=== PATIENT | male | born 1940 | race Caucasian/White ===

== ENCOUNTER 2024-02-28 10:40 | Emergency (ER) | payer MEDICARE ==
[~2024-02-28] VITALS: Ht 170.2 cm; Wt 89.1 kg
[2024-02-28] MEDS ORDERED: DOCU100C16 PO (11:24)
[2024-02-28] MEDS ORDERED: FINA5TAB2 PO (11:24)
[2024-02-28] MEDS ORDERED: ELIQ5TAB PO (11:24)
[2024-02-28] MEDS ORDERED: NOXI1TAB PO (11:24)
[2024-02-28] MEDS ORDERED: MULT-90 PO (11:24)
[2024-02-28] MEDS ORDERED: TRAZ-257 PO (11:24)
[2024-02-28] MEDS ORDERED: METO1TAB7 PO (11:24)
[2024-02-28] MEDS ORDERED: PRAV40TA2 PO (11:24)
[2024-02-28] MEDS ORDERED: HYDR25TA87 PO (11:24)
[2024-02-28] MEDS ORDERED: TREL1AER PO (11:24)
[2024-02-28] MEDS ORDERED: FLOM0.4C39 PO (11:24)
[2024-02-28] MEDS ORDERED: PANT40TA29 PO (11:24)
[2024-02-28] MEDS ORDERED: VENTAER INH (11:24)
[2024-02-28] MEDS ORDERED: PRED5TA PO (11:24)
[2024-02-28] MEDS ORDERED: SERT50TA29 PO (11:24)
[2024-02-28] MEDS ORDERED: VITA500C24 PO (11:24)
[2024-02-28] MEDS ORDERED: IPRA0.00 NEB (11:24)
[2024-02-28] MEDS: ACETAMINOPHEN TAB 650MG DOSE (2X325MG) PO ONE (12:55)
[2024-02-28 13:18] LABS: BASO % 0.4 % (0.0-1.0); EOS # 0.1 10^3/uL (0.0-0.5); EOS % 1.1 % (0.0-3.0); HEMATOCRIT 34.5 % (42.0-52.0); HEMOGLOBIN 11.5 g/dl (13.5-17.5); LYMPH # 0.6 10^3/uL (1.5-5.0); LYMPH % 7.3 % (24.0-44.0); MEAN CORPUSCULAR HEMOGLOBIN 32.9 pg (27.0-33.0); MEAN CORPUSCULAR HGB CONC 33.3 g/dl (32.0-36.5); MEAN CORPUSCULAR VOLUME 98.6 fl (80.0-96.0); MONO # 0.4 10^3/uL (0.0-0.8); MONO % 4.9 % (2.0-8.0); NEUTROPHILS # 7.3 10^3/uL (1.5-8.5); NEUTROPHILS % 85.8 % (36.0-66.0); PLATELET COUNT, AUTOMATED 135 10^3/uL (150-450); WHITE BLOOD COUNT 8.5 10^3/uL (4.0-10.0)
[2024-02-28 13:28] LABS: ERYTHROCYTE SEDIMENTATION RATE 42 mm/hr (0-20)
[2024-02-28 14:59] VITALS: BP 100/54; TEMP 99.3; O2SAT 95
[2024-02-28] MEDS ORDERED: TRAM50TA2 PO (14:59)
[2024-02-28] MEDS ORDERED: PRED20TA PO (14:59)
[2024-02-28] MEDS: traMADol 50 MG TAB PO ONE (15:12)
[2024-03-02 19:52] LABS: LYME TOTAL ANTIBODY CIA <= 0.90 Index (<=0.90)
== END 2024-02-28 15:27 | disposition home or self-care (01) ==
LOC: M ED 10:40
DX: M25.462 Effusion, left knee (principal); M17.11 Unilateral primary osteoarthritis, right knee; I10 Essential (primary) hypertension; J44.9 Chronic obstructive pulmonary disease, unspecified; N40.0 Benign prostatic hyperplasia without lower urinary tract symptoms; Z87.891 Personal history of nicotine dependence; Z88.0 Allergy status to penicillin; Z88.2 Allergy status to sulfonamides; Z88.1 Allergy status to other antibiotic agents; Z79.01 Long term (current) use of anticoagulants; Z79.52 Long term (current) use of systemic steroids; Z79.899 Other long term (current) drug therapy

== ENCOUNTER 2024-05-24 11:31 | Inpatient (IN) | payer MEDICARE ==
[~2024-05-24] VITALS: Ht 170.2 cm; Wt 85.0 kg
[~2024-05-24 11:31] MED LIST: DOCU100C16 PO; ELIQ5TAB PO; FINA5TAB2 PO; FLOM0.4C39 PO; HYDR25TA87 PO; IPRA0.00 NEB; METO1TAB7 PO; MULT-90 PO; NOXI1TAB PO; PANT40TA29 PO; PRAV40TA2 PO; PRED20TA PO; PRED5TA PO; SERT50TA29 PO; TRAM50TA2 PO; TRAZ-257 PO; TREL1AER PO; VENTAER INH; VITA500C24 PO
[2024-05-24 12:16] LABS: VENOUS BASE EXCESS -1.2 (-2.0-2.0); VENOUS HCO3 23.5 MMOL/L (23.0-27.0); VENOUS O2 SATURATION 96.3 % (60.0-80.0); VENOUS PARTIAL PRESSURE CO2 39.2 mmHg (38.0-50.0); VENOUS PARTIAL PRESSURE O2 90.5 mmHg (30.0-50.0); VENOUS PH 7.395 UNITS (7.330-7.430); VENOUS STANDARD HCO3 23.4 MMOL/L; VENOUS TOTAL CO2 24.7 MMOL/L (24.0-28.0)
[2024-05-24 12:27] LABS: BASO % 0.4 % (0.0-1.0); EOS # 0.3 10^3/uL (0.0-0.5); EOS % 2.9 % (0.0-3.0); HEMATOCRIT 37.7 % (42.0-52.0); HEMOGLOBIN 12.4 g/dl (13.5-17.5); LYMPH # 1.5 10^3/uL (1.5-5.0); LYMPH % 15.6 % (24.0-44.0); MEAN CORPUSCULAR HEMOGLOBIN 33.5 pg (27.0-33.0); MEAN CORPUSCULAR HGB CONC 32.9 g/dl (32.0-36.5); MEAN CORPUSCULAR VOLUME 101.9 fl (80.0-96.0); MONO # 0.7 10^3/uL (0.0-0.8); MONO % 6.9 % (2.0-8.0); NEUTROPHILS # 7.1 10^3/uL (1.5-8.5); NEUTROPHILS % 73.9 % (36.0-66.0); PLATELET COUNT, AUTOMATED 167 10^3/uL (150-450); WHITE BLOOD COUNT 9.6 10^3/uL (4.0-10.0)
[2024-05-24 12:40] LABS: INR 1.37; PROTHROMBIN TIME 16.4 SECONDS (12.5-14.5)
[2024-05-24 12:50] LABS: LIPASE 20 U/L (12-53)
[2024-05-24 12:52] LABS: ALBUMIN 3.3 G/DL (3.2-5.2); ALKALINE PHOSPHATASE 157 U/L (46-116); ALT/SGPT 23 U/L (7.0-40); AST/SGOT 18 U/L (<34); BILIRUBIN,DIRECT 0.2 MG/DL (<0.4); BILIRUBIN,TOTAL 0.6 MG/DL (0.3-1.2); BLOOD UREA NITROGEN 29 MG/DL (9-23); CALCIUM LEVEL 9.1 MG/DL (8.3-10.6); CARBON DIOXIDE LEVEL 27 MMOL/L (20-31); CHLORIDE LEVEL 109 MMOL/L (98-107); CPK CREATINE PHOSPHOKINASE 57 U/L (46-171); CREATININE FOR GFR 1.76 MG/DL (0.70-1.30); GLOMERULAR FILTRATION RATE 39.5 (>35); GLUCOSE, FASTING 87 MG/DL (74-106); POTASSIUM SERUM 4.2 MMOL/L (3.5-5.1); SODIUM LEVEL 140 MMOL/L (136-145); TOTAL PROTEIN 6.5 G/DL (5.7-8.2)
[2024-05-24 12:53] LABS: CK-MB VALUE MASS < 1.0 NG/ML (<3.6); MB/CK RELATIVE INDEX 1.75 (< OR =4)
[2024-05-24 12:56] LABS: THYROID STIMULATING HORMONE 3.742 uIU/ML (0.55-4.78)
[2024-05-24] MEDS: ASPIRIN 81MG CHEW TABLET PO ONE (13:21)
[2024-05-24 13:54] LABS: CK-MB VALUE MASS < 1.0 NG/ML (<3.6)
[2024-05-24 13:55] LABS: CPK CREATINE PHOSPHOKINASE 37 U/L (46-171)
[2024-05-24] MEDS ORDERED: ISOVUE-370 76% 100ML VIAL As Ordered ONE (14:17)
[2024-05-24] MEDS ORDERED: **NOTE PATIENT COMMENT** MISC XX SCH (17:15)
[2024-05-24] MEDS ORDERED: ATOR40TA75 PO (18:08)
[2024-05-24] MEDS ORDERED: THEO400T4 PO (18:08)
[2024-05-24] MEDS ORDERED: HOME MED LIST COMPLETE! XX SCH (18:10)
[2024-05-24 18:24] VITALS: BP 146/73; TEMP 96.8; O2SAT 95
[2024-05-24] MEDS ORDERED: ACETAMINOPHEN 500 MG TAB PO PRN (18:30)
[2024-05-24 18:56] LABS: D-DIMER QUANT 0.49 ug/mL (<0.5); INR 1.37; PARTIAL THROMBOPLASTIN TIME 30.1 SECONDS (24.8-34.2); PROTHROMBIN TIME 16.4 SECONDS (12.5-14.5)
[2024-05-24 19:03] LABS: C REACTIVE PROTEIN QUANTITATIV < 0.40 MG/DL (<1.0); LDH LACTATE DEHYDROGENASE 221 U/L (120-246); MAGNESIUM LEVEL 1.6 MG/DL (1.8-2.4)
[2024-05-24 19:07] LABS: FERRITIN 25.3 NG/ML (10.5-307.3)
[2024-05-24] MEDS: LIDOCAINE 5% (LIDODERM) PATCH TD SCH (19:09)
[2024-05-24 19:11] LABS: PROCALCITONIN 0.09 ng/ml
[2024-05-24 20:00] VITALS: BP 146/73; TEMP 96.8; O2SAT 95
[2024-05-24] MEDS: COMBIVENT RESPIMAT 100-20MCG INHALER 4GM INH SCH (20:04)
[2024-05-24] MEDS: **hydrALAZINE HCL** 25 MG TAB PO SCH (20:19)
[2024-05-24] MEDS: ATORVASTATIN 20 MG TAB PO SCH (20:19)
[2024-05-24 20:20] VITALS: BP 146/67; TEMP 97.9; O2SAT 94
[2024-05-24] MEDS: TAMSULOSIN 0.4 MG CAP PO SCH (20:20)
[2024-05-24] MEDS: traZODone 100 MG TAB PO SCH (20:20)
[2024-05-24] MEDS: REMDESIVIR 200 MG in NS 250 ML IV ONE (20:21)
[2024-05-24] MEDS: METOPROLOL SUCC (TopROL XL) 50MG **XL** TAB PO SCH (20:21)
[2024-05-24] MEDS: APIXABAN 5 MG TAB (ELIQUIS) PO SCH (21:00)
[2024-05-25] VITALS: BP 128/64; TEMP 97.7; O2SAT 93
[2024-05-25] MEDS: ACETAMINOPHEN 500 MG TAB PO PRN (00:28)
[2024-05-25 02:20] LABS: CK-MB VALUE MASS < 1.0 NG/ML (<3.6)
[2024-05-25 02:21] LABS: CPK CREATINE PHOSPHOKINASE 47 U/L (46-171); MB/CK RELATIVE INDEX 2.12 (< OR =4)
[2024-05-25 04:46] VITALS: BP 98/44; TEMP 98.1; O2SAT 92
[2024-05-25 07:52] LABS: BASO % 0.6 % (0.0-1.0); EOS # 0.3 10^3/uL (0.0-0.5); EOS % 4.2 % (0.0-3.0); HEMATOCRIT 34.2 % (42.0-52.0); HEMOGLOBIN 11.6 g/dl (13.5-17.5); LYMPH # 0.6 10^3/uL (1.5-5.0); MEAN CORPUSCULAR HEMOGLOBIN 34.4 pg (27.0-33.0); MEAN CORPUSCULAR HGB CONC 33.9 g/dl (32.0-36.5); MEAN CORPUSCULAR VOLUME 101.5 fl (80.0-96.0); MONO # 0.4 10^3/uL (0.0-0.8); MONO % 7.1 % (2.0-8.0); NEUTROPHILS # 4.8 10^3/uL (1.5-8.5); NEUTROPHILS % 77.6 % (36.0-66.0); PLATELET COUNT, AUTOMATED 130 10^3/uL (150-450); RED BLOOD COUNT 3.37 10^6/uL (4.30-6.10); WHITE BLOOD COUNT 6.2 10^3/uL (4.0-10.0)
[2024-05-25 08:00] VITALS: BP 127/67; TEMP 97.9; O2SAT 95
[2024-05-25] MEDS: PANTOPRAZOLE 40MG TAB (PROTONIX) PO SCH (08:08)
[2024-05-25] MEDS: SERTRALINE HCL 50 MG TAB PO SCH (08:08)
[2024-05-25] MEDS: FINASTERIDE 5MG TAB PO SCH (08:09)
[2024-05-25 08:24] LABS: ALKALINE PHOSPHATASE 139 U/L (46-116); ALT/SGPT 20 U/L (7.0-40); AST/SGOT 17 U/L (<34); BILIRUBIN,DIRECT 0.2 MG/DL (<0.4); BILIRUBIN,TOTAL 0.5 MG/DL (0.3-1.2); BLOOD UREA NITROGEN 28 MG/DL (9-23); CALCIUM LEVEL 9.1 MG/DL (8.3-10.6); CARBON DIOXIDE LEVEL 24 MMOL/L (20-31); CHLORIDE LEVEL 110 MMOL/L (98-107); CREATININE FOR GFR 1.57 MG/DL (0.70-1.30); GLUCOSE, FASTING 113 MG/DL (74-106); MAGNESIUM LEVEL 1.6 MG/DL (1.8-2.4); POTASSIUM SERUM 4.1 MMOL/L (3.5-5.1); SODIUM LEVEL 140 MMOL/L (136-145); TOTAL PROTEIN 5.8 G/DL (5.7-8.2)
[2024-05-25] MEDS: MAG SULF 1GM/100ML (MAG RUN) 1 GM in IV 1 EA IV ONE (09:33)
[2024-05-25 10:02] LABS: CK-MB VALUE MASS < 1.0 NG/ML (<3.6)
[2024-05-25 10:03] LABS: CPK CREATINE PHOSPHOKINASE 53 U/L (46-171); MB/CK RELATIVE INDEX 1.88 (< OR =4)
[2024-05-25 12:00] VITALS: BP 129/66; TEMP 97.9; O2SAT 93
[2024-05-25 16:00] VITALS: BP 131/65; TEMP 97.9; O2SAT 94
[2024-05-25 17:22] LABS: CK-MB VALUE MASS < 1.0 NG/ML (<3.6)
[2024-05-25 17:23] LABS: CPK CREATINE PHOSPHOKINASE 52 U/L (46-171); MB/CK RELATIVE INDEX 1.92 (< OR =4)
[2024-05-25 20:00] VITALS: BP 129/62; TEMP 98.1; O2SAT 92
[2024-05-25] MEDS: REMDESIVIR 100 MG in NS 250 ML IV SCH (21:31)
[2024-05-26] VITALS: BP 131/64; TEMP 97.9; O2SAT 93
[2024-05-26 04:00] VITALS: BP 133/66; TEMP 97.9; O2SAT 96
[2024-05-26 06:01] LABS: BASO % 0.6 % (0.0-1.0); HEMATOCRIT 33.3 % (42.0-52.0); HEMOGLOBIN 11.3 g/dl (13.5-17.5); LYMPH # 0.8 10^3/uL (1.5-5.0); LYMPH % 14.2 % (24.0-44.0); MEAN CORPUSCULAR HEMOGLOBIN 34.2 pg (27.0-33.0); MEAN CORPUSCULAR HGB CONC 33.9 g/dl (32.0-36.5); MEAN CORPUSCULAR VOLUME 100.9 fl (80.0-96.0); MONO # 0.5 10^3/uL (0.0-0.8); MONO % 9.9 % (2.0-8.0); NEUTROPHILS % 74.7 % (36.0-66.0); PLATELET COUNT, AUTOMATED 145 10^3/uL (150-450); WHITE BLOOD COUNT 5.4 10^3/uL (4.0-10.0)
[2024-05-26 06:22] LABS: CALCIUM LEVEL 9.2 MG/DL (8.3-10.6); CREATININE FOR GFR 1.5 MG/DL (0.70-1.30); GLOMERULAR FILTRATION RATE 47.5 (>35); POTASSIUM SERUM 4.3 MMOL/L (3.5-5.1)
[2024-05-26 08:00] VITALS: BP 126/57; TEMP 97.2; O2SAT 94
[2024-05-26 12:00] VITALS: BP 124/54; TEMP 97.5; O2SAT 94
[2024-05-26 16:00] VITALS: BP 156/38; TEMP 97.3; O2SAT 96
[2024-05-26 20:00] VITALS: BP 134/51; TEMP 97.7; O2SAT 96
[2024-05-27] VITALS: BP 168/86; TEMP 97.9; O2SAT 97
[2024-05-27 04:00] VITALS: BP 121/78; TEMP 97.9; O2SAT 95
[2024-05-27 06:47] LABS: BASO % 0.2 % (0.0-1.0); EOS % 0.2 % (0.0-3.0); HEMATOCRIT 32.4 % (42.0-52.0); HEMOGLOBIN 11.1 g/dl (13.5-17.5); MEAN CORPUSCULAR HEMOGLOBIN 34.7 pg (27.0-33.0); MEAN CORPUSCULAR HGB CONC 34.3 g/dl (32.0-36.5); MEAN CORPUSCULAR VOLUME 101.3 fl (80.0-96.0); MONO # 0.5 10^3/uL (0.0-0.8); MONO % 9.3 % (2.0-8.0); NEUTROPHILS # 4.2 10^3/uL (1.5-8.5); NEUTROPHILS % 71.8 % (36.0-66.0); PLATELET COUNT, AUTOMATED 127 10^3/uL (150-450); WHITE BLOOD COUNT 5.8 10^3/uL (4.0-10.0)
[2024-05-27 07:03] LABS: CALCIUM LEVEL 8.8 MG/DL (8.3-10.6); CREATININE FOR GFR 1.37 MG/DL (0.70-1.30); GLOMERULAR FILTRATION RATE 52.7 (>35); MAGNESIUM LEVEL 1.7 MG/DL (1.8-2.4); POTASSIUM SERUM 4.4 MMOL/L (3.5-5.1)
[2024-05-27 08:00] VITALS: BP 128/49; TEMP 97.9; O2SAT 95
[2024-05-27 08:56] VITALS: BP 124/54
[2024-05-27] MEDS: MAG SULF 1GM/100ML (MAG RUN) 1 GM in IV 1 EA IV ONE (08:57)
[2024-05-27] MEDS ORDERED: DEXA2TA PO (09:14)
== END 2024-05-27 13:22 | disposition home health service (06) | DRG 178 ==
LOC: M ED 11:31 → M ED INP 17:12 → M MSPAV 18:25
PROVIDERS: ADMIT Family Medicine; ATTEND General Practice
DX: U07.1 COVID-19 (principal); J96.11 Chronic respiratory failure with hypoxia; I11.9 Hypertensive heart disease without heart failure; I25.10 Atherosclerotic heart disease of native coronary artery without angina pectoris; R07.81 Pleurodynia; E78.5 Hyperlipidemia, unspecified; K21.9 Gastro-esophageal reflux disease without esophagitis; Z95.1 Presence of aortocoronary bypass graft; J44.9 Chronic obstructive pulmonary disease, unspecified; N40.1 Benign prostatic hyperplasia with lower urinary tract symptoms; Z99.81 Dependence on supplemental oxygen; Z79.52 Long term (current) use of systemic steroids; Z79.899 Other long term (current) drug therapy; Z88.0 Allergy status to penicillin; Z88.2 Allergy status to sulfonamides; Z88.8 Allergy status to other drugs, medicaments and biological substances

== ENCOUNTER 2024-07-20 10:26 | Emergency (ER) | payer MEDICARE ==
[~2024-07-20] VITALS: Ht 170.2 cm; Wt 85.7 kg
[~2024-07-20 10:26] MED LIST changes: +ATOR40TA75 PO; +DEXA2TA PO; +THEO400T4 PO
[2024-07-20] MEDS: IPRATROPIUM 0.5MG/ALBUTEROL 2.5MG INH SOL UD 3ML (DUONEB) NEB SCH (12:16)
[2024-07-20] MEDS: dexAMETHasone 20MG/5ML VIAL IV ONE (12:28)
[2024-07-20 12:35] LABS: BASO % 0.5 % (0.0-1.0); EOS # 0.1 10^3/uL (0.0-0.5); HEMATOCRIT 38.3 % (42.0-52.0); HEMOGLOBIN 12.8 g/dl (13.5-17.5); LYMPH # 1.1 10^3/uL (1.5-5.0); LYMPH % 12.7 % (24.0-44.0); MEAN CORPUSCULAR HEMOGLOBIN 34.9 pg (27.0-33.0); MEAN CORPUSCULAR HGB CONC 33.4 g/dl (32.0-36.5); MEAN CORPUSCULAR VOLUME 104.4 fl (80.0-96.0); MONO # 0.7 10^3/uL (0.0-0.8); MONO % 7.5 % (2.0-8.0); NEUTROPHILS # 6.9 10^3/uL (1.5-8.5); NEUTROPHILS % 77.7 % (36.0-66.0); PLATELET COUNT, AUTOMATED 134 10^3/uL (150-450); RED BLOOD COUNT 3.67 10^6/uL (4.30-6.10); WHITE BLOOD COUNT 8.8 10^3/uL (4.0-10.0)
[2024-07-20 12:54] LABS: CALCIUM LEVEL 9.2 MG/DL (8.3-10.6); CREATININE FOR GFR 1.54 MG/DL (0.70-1.30); POTASSIUM SERUM 4.1 MMOL/L (3.5-5.1)
[2024-07-20] MEDS: AZITHROMYCIN INJ 500 MG, VIAL MATE ADAPTER 1 EACH in NS 250 ML IV ONE (13:38)
[2024-07-20] MEDS ORDERED: AZIT-10 PO (14:04)
[2024-07-20 14:30] VITALS: BP 133/63; TEMP 96.8; O2SAT 97
== END 2024-07-20 14:50 | disposition home or self-care (01) ==
LOC: M ED 10:26
DX: J44.1 Chronic obstructive pulmonary disease with (acute) exacerbation (principal); A37.10 Whooping cough due to Bordetella parapertussis without pneumonia; F32.A Depression, unspecified; N40.0 Benign prostatic hyperplasia without lower urinary tract symptoms; E78.5 Hyperlipidemia, unspecified; I10 Essential (primary) hypertension; F10.10 Alcohol abuse, uncomplicated; Z88.0 Allergy status to penicillin; Z88.1 Allergy status to other antibiotic agents; Z88.2 Allergy status to sulfonamides; Z79.52 Long term (current) use of systemic steroids; Z79.01 Long term (current) use of anticoagulants; Z79.02 Long term (current) use of antithrombotics/antiplatelets; Z79.899 Other long term (current) drug therapy; Z86.79 Personal history of other diseases of the circulatory system; Z87.891 Personal history of nicotine dependence
CPT/HCPCS: 71045; 80048; 83605; 85025; 87486; 87581; 87633; 87798; 93041; 94640; 94760; 96365; 96375; 99284; J0456; J1100

== ENCOUNTER 2024-08-18 10:47 | Observation (INO) | payer MEDICARE ==
[~2024-08-18] VITALS: Ht 170.2 cm; Wt 86.4 kg
[2024-08-18] MEDS: ASCORBIC ACID 500 MG TAB PO SCH (09:00)
[~2024-08-18 10:47] MED LIST changes: +AZIT-10 PO
[2024-08-18 16:09] LABS: HEMATOCRIT 38.3 % (42.0-52.0); HEMOGLOBIN 12.9 g/dl (13.5-17.5); MEAN CORPUSCULAR HEMOGLOBIN 34.9 pg (27.0-33.0); MEAN CORPUSCULAR HGB CONC 33.7 g/dl (32.0-36.5); MEAN CORPUSCULAR VOLUME 103.5 fl (80.0-96.0); PLATELET COUNT, AUTOMATED 178 10^3/uL (150-450); WHITE BLOOD COUNT 8.7 10^3/uL (4.0-10.0)
[2024-08-18 16:12] LABS: CALCIUM LEVEL 9.5 MG/DL (8.3-10.6); CREATININE FOR GFR 1.53 MG/DL (0.70-1.30); GLOMERULAR FILTRATION RATE 46.4 (>35); POTASSIUM SERUM 4.5 MMOL/L (3.5-5.1)
[2024-08-18] MEDS ORDERED: DOXY100C3 PO (16:23)
[2024-08-18] MEDS ORDERED: VITA-158 PO (16:26)
[2024-08-18] MEDS ORDERED: D-10TAB3 PO (16:26)
[2024-08-18] MEDS ORDERED: DOCU100C16 PO (16:26)
[2024-08-18] MEDS ORDERED: HOME MED LIST COMPLETE! XX SCH (16:30)
[2024-08-18 17:02] LABS: INR 1.28; PARTIAL THROMBOPLASTIN TIME 31.8 SECONDS (24.8-34.2); PROTHROMBIN TIME 16.3 SECONDS (12.5-14.5)
[2024-08-18] MEDS ORDERED: IPRATROPIUM 0.5MG/ALBUTEROL 2.5MG INH SOL UD 3ML (DUONEB) NEB PRN (17:05)
[2024-08-18] MEDS ORDERED: ALBUTEROL 90 MCG/ACT 8GM HFA INHALER INH PRN (17:05)
[2024-08-18 17:19] LABS: C REACTIVE PROTEIN QUANTITATIV 1.62 MG/DL (<1.0)
[2024-08-18 17:37] LABS: PROCALCITONIN 0.11 ng/ml
[2024-08-18] MEDS ORDERED: ACETAMINOPHEN 325 MG TAB PO PRN (18:40)
[2024-08-18] MEDS ORDERED: PERCOCET 5MG/325MG TAB PO PRN (18:40)
[2024-08-18] MEDS ORDERED: NALOXONE INJ 0.4MG/1ML VIAL IV PRN (18:40)
[2024-08-18] MEDS: ADVAIR HFA 115/21MCG INHALER INH SCH (19:08)
[2024-08-18] MEDS: DOCUSATE SODIUM 100MG CAPSULE PO SCH (20:02)
[2024-08-18] MEDS: TAMSULOSIN 0.4 MG CAP PO SCH (20:02)
[2024-08-18] MEDS: METOPROLOL SUCC (TopROL XL) 50MG **XL** TAB PO SCH (20:03)
[2024-08-18] MEDS: PERCOCET 5MG/325MG TAB PO PRN (20:03)
[2024-08-18] MEDS: traZODone 100 MG TAB PO SCH (20:04)
[2024-08-18] MEDS: ATORVASTATIN 20 MG TAB PO SCH (20:04)
[2024-08-18] MEDS: **hydrALAZINE HCL** 25 MG TAB PO SCH (20:04)
[2024-08-19 06:41] LABS: HEMATOCRIT 33.4 % (42.0-52.0); HEMOGLOBIN 11.3 g/dl (13.5-17.5); MEAN CORPUSCULAR HEMOGLOBIN 34.8 pg (27.0-33.0); MEAN CORPUSCULAR HGB CONC 33.8 g/dl (32.0-36.5); MEAN CORPUSCULAR VOLUME 102.8 fl (80.0-96.0); PLATELET COUNT, AUTOMATED 135 10^3/uL (150-450); RED BLOOD COUNT 3.25 10^6/uL (4.30-6.10); WHITE BLOOD COUNT 6.3 10^3/uL (4.0-10.0)
[2024-08-19 07:09] LABS: CALCIUM LEVEL 8.8 MG/DL (8.3-10.6); CREATININE FOR GFR 1.64 MG/DL (0.70-1.30); GLOMERULAR FILTRATION RATE 42.7 (>35); POTASSIUM SERUM 4.4 MMOL/L (3.5-5.1)
[2024-08-19 08:13] VITALS: BP 100/54
[2024-08-19] MEDS: PANTOPRAZOLE 40MG TAB (PROTONIX) PO SCH (08:14)
[2024-08-19] MEDS: predniSONE 5 MG TAB PO SCH (08:14)
[2024-08-19] MEDS: VITAMIN D 1,000 INTERNATIONAL UNITS TABLET PO SCH (08:14)
[2024-08-19] MEDS: SERTRALINE HCL 50 MG TAB PO SCH (08:14)
[2024-08-19] MEDS: FINASTERIDE 5MG TAB PO SCH (08:15)
[2024-08-19] MEDS: APIXABAN 2.5 MG TAB (ELIQUIS) PO SCH (11:59)
[2024-08-19 12:20] VITALS: BP 152/65; TEMP 98.5; O2SAT 99
[2024-08-19] MEDS ORDERED: ELIQ2.5T PO (15:42)
[2024-08-19] MEDS ORDERED: ACET650T61 PO (15:44)
== END 2024-08-19 16:15 | disposition home health service (06) ==
LOC: M ED 10:47 → M ED INP 10:48 → M MS5PR 08-19 14:20
PROVIDERS: ADMIT Internal Medicine; ATTEND Internal Medicine
DX: M70.51 Other bursitis of knee, right knee (principal); R42 Dizziness and giddiness; R53.1 Weakness; R29.6 Repeated falls; I25.10 Atherosclerotic heart disease of native coronary artery without angina pectoris; Z95.1 Presence of aortocoronary bypass graft; I48.91 Unspecified atrial fibrillation; Z79.01 Long term (current) use of anticoagulants; J96.11 Chronic respiratory failure with hypoxia; Z99.81 Dependence on supplemental oxygen; I65.29 Occlusion and stenosis of unspecified carotid artery; I10 Essential (primary) hypertension; E78.5 Hyperlipidemia, unspecified; F39 Unspecified mood [affective] disorder; Z86.73 Personal history of transient ischemic attack (TIA), and cerebral infarction without residual deficits; N40.0 Benign prostatic hyperplasia without lower urinary tract symptoms; E55.9 Vitamin D deficiency, unspecified; Z79.899 Other long term (current) drug therapy; Z88.0 Allergy status to penicillin; Z88.2 Allergy status to sulfonamides; Z88.1 Allergy status to other antibiotic agents; Z87.891 Personal history of nicotine dependence
CPT/HCPCS: 36415; 70450; 72072; 72110; 72125; 73564; 80048; 84145; 85027; 85610; 85652; 85730; 86140; 93005; 94640; 94664; 97161; 97530; 99285; G0378; G0390; J7512

== ENCOUNTER 2024-09-14 12:14 | Observation (INO) | payer MEDICARE ==
[~2024-09-14] VITALS: Ht 170.2 cm; Wt 83.0 kg
[~2024-09-14 12:14] MED LIST changes: +ACET650T61 PO; +D-10TAB3 PO; +DOXY100C3 PO; +ELIQ2.5T PO; +VITA-158 PO
[2024-09-14 12:45] LABS: BASO # 0.1 10^3/uL (0.0-0.2); BASO % 0.7 % (0.0-1.0); EOS # 0.4 10^3/uL (0.0-0.5); HEMATOCRIT 35.2 % (42.0-52.0); HEMOGLOBIN 11.8 g/dl (13.5-17.5); LYMPH # 1.1 10^3/uL (1.5-5.0); MEAN CORPUSCULAR HEMOGLOBIN 34.1 pg (27.0-33.0); MEAN CORPUSCULAR HGB CONC 33.5 g/dl (32.0-36.5); MEAN CORPUSCULAR VOLUME 101.7 fl (80.0-96.0); MONO # 0.6 10^3/uL (0.0-0.8); MONO % 7.6 % (2.0-8.0); NEUTROPHILS # 5.2 10^3/uL (1.5-8.5); NEUTROPHILS % 71.3 % (36.0-66.0); PLATELET COUNT, AUTOMATED 147 10^3/uL (150-450); RED BLOOD COUNT 3.46 10^6/uL (4.30-6.10); WHITE BLOOD COUNT 7.3 10^3/uL (4.0-10.0)
[2024-09-14] MEDS ORDERED: ASPIRIN 81MG CHEW TABLET PO ONE (12:45)
[2024-09-14 12:55] LABS: INR 1.22; PARTIAL THROMBOPLASTIN TIME 30.6 SECONDS (24.8-34.2); PROTHROMBIN TIME 15.7 SECONDS (12.5-14.5)
[2024-09-14 13:15] LABS: CK-MB VALUE MASS 2.2 NG/ML (<3.6)
[2024-09-14 13:16] LABS: MB/CK RELATIVE INDEX 2.85 (< OR =4)
[2024-09-14 14:19] LABS: ALBUMIN 3.3 G/DL (3.2-5.2); BILIRUBIN,DIRECT 0.3 MG/DL (<0.4); BILIRUBIN,TOTAL 0.8 MG/DL (0.3-1.2); CALCIUM LEVEL 9.2 MG/DL (8.3-10.6); CREATININE FOR GFR 1.7 MG/DL (0.70-1.30); POTASSIUM SERUM 4.8 MMOL/L (3.5-5.1); TOTAL PROTEIN 6.2 G/DL (5.7-8.2)
[2024-09-14 14:37] LABS: CK-MB VALUE MASS 1.8 NG/ML (<3.6)
[2024-09-14 14:39] LABS: MB/CK RELATIVE INDEX 2.43 (< OR =4)
[2024-09-14] MEDS ORDERED: ISOVUE-370 76% 100ML VIAL As Ordered ONE (14:52)
[2024-09-14] MEDS: MEROPENEM INJ 1 GM in IV 1 EA IV ONE (16:57)
[2024-09-14] MEDS ORDERED: ELIQ2.5T PO (17:32)
[2024-09-14] MEDS ORDERED: HOME MED LIST COMPLETE! XX SCH (17:35)
[2024-09-14] MEDS ORDERED: ALBUTEROL SULFATE 2.5MG/0.5ML INH NEB SOLN NEB PRN (20:15)
[2024-09-14] MEDS ORDERED: ACETAMINOPHEN 325 MG TAB PO PRN (20:15)
[2024-09-14] MEDS ORDERED: MAALOX 30 ML SUSP *UDC PO PRN (20:15)
[2024-09-14] MEDS: MOM 30ML SUSPENSION UDC PO PRN (20:56)
[2024-09-14] MEDS: TAMSULOSIN 0.4 MG CAP PO SCH (20:56)
[2024-09-14] MEDS: ATORVASTATIN 20 MG TAB PO SCH (20:56)
[2024-09-14] MEDS: predniSONE 20 MG TAB PO SCH (20:56)
[2024-09-14] MEDS: METOPROLOL SUCC (TopROL XL) 50MG **XL** TAB PO SCH (20:56)
[2024-09-14] MEDS: DOCUSATE SODIUM 100MG CAPSULE PO SCH (20:56)
[2024-09-14 20:57] VITALS: BP 145/62
[2024-09-14] MEDS: **hydrALAZINE HCL** 25 MG TAB PO SCH (20:57)
[2024-09-14] MEDS: APIXABAN 2.5 MG TAB (ELIQUIS) PO SCH (20:57)
[2024-09-14] MEDS ORDERED: DOCUSATE SODIUM 100MG CAPSULE PO SCH (21:00)
[2024-09-14 21:05] VITALS: BP 136/73; TEMP 97.2; O2SAT 96
[2024-09-14] MEDS: traZODone 100 MG TAB PO SCH (21:20)
[2024-09-14 23:37] VITALS: BP 104/56; TEMP 97.4; O2SAT 95
[2024-09-15] MEDS: IPRATROPIUM 0.02% SOLN 0.5MG 2.5ML NEB NEB SCH (03:00)
[2024-09-15 03:52] VITALS: BP 133/62; TEMP 98; O2SAT 95
[2024-09-15] MEDS ORDERED: LevoFLOXacin 750 MG TABLET PO SCH (06:00)
[2024-09-15 06:47] LABS: HEMATOCRIT 32.1 % (42.0-52.0); MEAN CORPUSCULAR HEMOGLOBIN 34.6 pg (27.0-33.0); MEAN CORPUSCULAR HGB CONC 34.3 g/dl (32.0-36.5); MEAN CORPUSCULAR VOLUME 100.9 fl (80.0-96.0); PLATELET COUNT, AUTOMATED 146 10^3/uL (150-450); RED BLOOD COUNT 3.18 10^6/uL (4.30-6.10); WHITE BLOOD COUNT 4.3 10^3/uL (4.0-10.0)
[2024-09-15 07:06] LABS: ALBUMIN 2.8 G/DL (3.2-5.2); BILIRUBIN,TOTAL 0.5 MG/DL (0.3-1.2); CALCIUM LEVEL 8.9 MG/DL (8.3-10.6); CREATININE FOR GFR 1.5 MG/DL (0.70-1.30); GLOMERULAR FILTRATION RATE 47.4 (>35); MAGNESIUM LEVEL 1.8 MG/DL (1.8-2.4); POTASSIUM SERUM 5.2 MMOL/L (3.5-5.1); TOTAL PROTEIN 5.9 G/DL (5.7-8.2)
[2024-09-15 07:57] VITALS: BP 141/66; TEMP 97.4; O2SAT 91
[2024-09-15 08:00] VITALS: O2SAT 91
[2024-09-15] MEDS ORDERED: predniSONE 5 MG TAB PO SCH (09:00)
[2024-09-15] MEDS ORDERED: PANTOPRAZOLE 40MG TAB (PROTONIX) PO SCH (09:00)
[2024-09-15] MEDS: ASCORBIC ACID 500 MG TAB PO SCH (09:30)
[2024-09-15] MEDS: PANTOPRAZOLE 40MG TAB (PROTONIX) PO SCH (09:30)
[2024-09-15] MEDS: SERTRALINE HCL 50 MG TAB PO SCH (09:30)
[2024-09-15] MEDS: FINASTERIDE 5MG TAB PO SCH (09:30)
[2024-09-15] MEDS: CEFDINIR 300 MG CAP (OMNICEF) PO SCH (09:37)
[2024-09-15 12:17] VITALS: BP 124/56; TEMP 97.3; O2SAT 98
[2024-09-15] MEDS: FUROSEMIDE 40MG/4ML VIAL IV ONE (12:19)
[2024-09-15 15:17] LABS: CALCIUM LEVEL 9.2 MG/DL (8.3-10.6); CREATININE FOR GFR 1.59 MG/DL (0.70-1.30); GLOMERULAR FILTRATION RATE 44.3 (>35); POTASSIUM SERUM 4.3 MMOL/L (3.5-5.1)
[2024-09-15] MEDS ORDERED: PRED20TA PO (16:11)
[2024-09-15] MEDS ORDERED: CEFA500T PO (16:15)
[2024-09-15 18:23] LABS: PROCALCITONIN 0.07 ng/ml
== END 2024-09-15 18:06 | disposition home health service (06) ==
LOC: EDBD 12:14 → M ED 12:14 → M ED INP 20:11 → M PCU 21:05
PROVIDERS: ADMIT Student in an Organized Health Care Education/Training Program; ATTEND Student in an Organized Health Care Education/Training Program
DX: J44.1 Chronic obstructive pulmonary disease with (acute) exacerbation (principal); I25.10 Atherosclerotic heart disease of native coronary artery without angina pectoris; I48.91 Unspecified atrial fibrillation; J96.11 Chronic respiratory failure with hypoxia; Z99.81 Dependence on supplemental oxygen; I11.9 Hypertensive heart disease without heart failure; E78.5 Hyperlipidemia, unspecified; Z86.73 Personal history of transient ischemic attack (TIA), and cerebral infarction without residual deficits; N40.0 Benign prostatic hyperplasia without lower urinary tract symptoms; K22.9 Disease of esophagus, unspecified; F32.A Depression, unspecified; D64.9 Anemia, unspecified; D69.6 Thrombocytopenia, unspecified; R79.89 Other specified abnormal findings of blood chemistry; Z95.5 Presence of coronary angioplasty implant and graft; Z79.01 Long term (current) use of anticoagulants; Z79.52 Long term (current) use of systemic steroids; Z79.899 Other long term (current) drug therapy; Z88.0 Allergy status to penicillin; Z88.1 Allergy status to other antibiotic agents; Z88.2 Allergy status to sulfonamides; E87.5 Hyperkalemia
CPT/HCPCS: 36415; 51701; 71045; 71275; 73590; 80048; 80053; 80076; 82550; 82553; 83690; 83735; 83880; 84145; 84484; 85025; 85027; 85610; 85730; 87040; 87486; 87581; 87633; 87798; 93005; 93041; 93306; 93971; 94640; 94760; 96365; 96374; 97116; 97161; 99285; G0378; J1940; J2184; J7512; Q9967

== ENCOUNTER 2024-10-11 10:47 | Emergency (ER) | payer MEDICARE ==
[~2024-10-11] VITALS: Ht 167.6 cm; Wt 85.1 kg
[~2024-10-11 10:47] MED LIST changes: +CEFA500T PO
[2024-10-11 11:57] LABS: BASO % 0.5 % (0.0-1.0); EOS # 0.3 10^3/uL (0.0-0.5); EOS % 4.1 % (0.0-3.0); HEMATOCRIT 36.5 % (42.0-52.0); HEMOGLOBIN 12.2 g/dl (13.5-17.5); LYMPH # 0.8 10^3/uL (1.5-5.0); LYMPH % 11.2 % (24.0-44.0); MEAN CORPUSCULAR HGB CONC 33.4 g/dl (32.0-36.5); MEAN CORPUSCULAR VOLUME 104.6 fl (80.0-96.0); MONO # 0.6 10^3/uL (0.0-0.8); MONO % 7.4 % (2.0-8.0); NEUTROPHILS # 5.7 10^3/uL (1.5-8.5); NEUTROPHILS % 76.4 % (36.0-66.0); PLATELET COUNT, AUTOMATED 132 10^3/uL (150-450); RED BLOOD COUNT 3.49 10^6/uL (4.30-6.10); WHITE BLOOD COUNT 7.4 10^3/uL (4.0-10.0)
[2024-10-11] MEDS: MORPHINE 4 MG/ML 1ML VIAL IV PRN (12:30)
[2024-10-11 12:36] LABS: CREATININE FOR GFR 1.43 MG/DL (0.70-1.30); POTASSIUM SERUM 4.5 MMOL/L (3.5-5.1)
[2024-10-11] MEDS ORDERED: ISOVUE-370 76% 100ML VIAL As Ordered ONE (12:38)
[2024-10-11 13:12] LABS: INR 1.21; PARTIAL THROMBOPLASTIN TIME 29.4 SECONDS (24.8-34.2); PROTHROMBIN TIME 15.6 SECONDS (12.5-14.5)
[2024-10-11 14:27] LABS: KETONE, URINE AUTO RFX NEGATIVE (NEGATIVE); LEUKOCYTE ESTERASE UR AUTO RFX NEGATIVE (NEGATIVE); NITRITE, URINE AUTO RFX NEGATIVE (NEGATIVE); RBC, URINE AUTO RFX 0 /HPF (0-3); SQUAM EPITHELIAL CELL UR AURFX 0 /HPF (0-6); WBC, URINE AUTO RFX 0 /HPF (0-3)
[2024-10-11 15:45] VITALS: BP 131/60; O2SAT 96
[2024-10-11 16:02] VITALS: TEMP 96.6
== END 2024-10-11 16:04 | disposition short-term general hospital (02) ==
LOC: M ED 10:47
DX: S32.018A Other fracture of first lumbar vertebra, initial encounter for closed fracture (principal); R20.2 Paresthesia of skin; M25.78 Osteophyte, vertebrae; M50.322 Other cervical disc degeneration at C5-C6 level; M50.321 Other cervical disc degeneration at C4-C5 level; M50.323 Other cervical disc degeneration at C6-C7 level; K42.9 Umbilical hernia without obstruction or gangrene; J44.9 Chronic obstructive pulmonary disease, unspecified; E78.5 Hyperlipidemia, unspecified; I10 Essential (primary) hypertension; Z88.0 Allergy status to penicillin; Z88.1 Allergy status to other antibiotic agents; Z88.2 Allergy status to sulfonamides; Z79.52 Long term (current) use of systemic steroids; Z79.02 Long term (current) use of antithrombotics/antiplatelets; Z79.899 Other long term (current) drug therapy; Z86.79 Personal history of other diseases of the circulatory system; Z86.73 Personal history of transient ischemic attack (TIA), and cerebral infarction without residual deficits; Z79.01 Long term (current) use of anticoagulants; Y92.9 Unspecified place or not applicable; Y93.89 Activity, other specified; Y99.9 Unspecified external cause status
CPT/HCPCS: 70450; 71260; 72125; 72128; 72131; 74177; 80048; 81001; 85025; 85610; 85730; 87635; 93041; 94760; 96374; 96376; 99285; Q9967

== ENCOUNTER 2024-11-15 13:44 | Emergency (ER) | payer MEDICARE ==
[~2024-11-15] VITALS: Ht 170.2 cm; Wt 83.6 kg
[2024-11-15 14:53] LABS: BASO % 0.4 % (0.0-1.0); EOS # 0.2 10^3/uL (0.0-0.5); EOS % 2.7 % (0.0-3.0); HEMATOCRIT 35.7 % (42.0-52.0); HEMOGLOBIN 11.8 g/dl (13.5-17.5); LYMPH # 0.8 10^3/uL (1.5-5.0); LYMPH % 9.9 % (24.0-44.0); MEAN CORPUSCULAR HEMOGLOBIN 33.8 pg (27.0-33.0); MEAN CORPUSCULAR HGB CONC 33.1 g/dl (32.0-36.5); MEAN CORPUSCULAR VOLUME 102.3 fl (80.0-96.0); MONO # 0.6 10^3/uL (0.0-0.8); MONO % 7.6 % (2.0-8.0); NEUTROPHILS # 6.5 10^3/uL (1.5-8.5); PLATELET COUNT, AUTOMATED 124 10^3/uL (150-450); RED BLOOD COUNT 3.49 10^6/uL (4.30-6.10); WHITE BLOOD COUNT 8.2 10^3/uL (4.0-10.0)
[2024-11-15 15:04] LABS: INR 1.18; PROTHROMBIN TIME 15.3 SECONDS (12.5-14.5)
[2024-11-15 15:19] LABS: ALBUMIN 3.1 G/DL (3.2-5.2); BILIRUBIN,DIRECT 0.3 MG/DL (<0.4); BILIRUBIN,TOTAL 0.8 MG/DL (0.3-1.2); CREATININE FOR GFR 1.62 MG/DL (0.70-1.30); GLOMERULAR FILTRATION RATE 43.3 (>35); TOTAL PROTEIN 6.4 G/DL (5.7-8.2)
[2024-11-15] MEDS: NS (Normal Saline) 0.9% 1,000 ML IV SCH (15:21)
[2024-11-15] MEDS: ONDANSETRON 4MG 2ML VIAL IV ONE (15:30)
[2024-11-15] MEDS: MORPHINE 2 MG/ML 1ML VIAL IV PRN (15:30)
[2024-11-15] MEDS: PANTOPRAZOLE 40MG VIAL IV ONE (15:30)
[2024-11-15] MEDS ORDERED: ISOVUE-370 76% 100ML VIAL As Ordered ONE (15:31)
[2024-11-15] MEDS ORDERED: ONDA-282 PO (18:04)
[2024-11-15 18:26] VITALS: BP 130/62; TEMP 97.7; O2SAT 93
== END 2024-11-15 18:30 | disposition home or self-care (01) ==
LOC: M ED 13:44
DX: R11.11 Vomiting without nausea (principal); N28.1 Cyst of kidney, acquired; K57.30 Diverticulosis of large intestine without perforation or abscess without bleeding; I49.1 Atrial premature depolarization; I10 Essential (primary) hypertension; J44.9 Chronic obstructive pulmonary disease, unspecified; E78.5 Hyperlipidemia, unspecified; Z86.79 Personal history of other diseases of the circulatory system; Z86.73 Personal history of transient ischemic attack (TIA), and cerebral infarction without residual deficits; Z79.01 Long term (current) use of anticoagulants; Z88.0 Allergy status to penicillin; Z88.1 Allergy status to other antibiotic agents; Z88.2 Allergy status to sulfonamides; Z79.52 Long term (current) use of systemic steroids; Z79.02 Long term (current) use of antithrombotics/antiplatelets; Z79.899 Other long term (current) drug therapy; Z79.83 Long term (current) use of bisphosphonates
CPT/HCPCS: 74177; 80048; 80076; 83605; 83690; 85025; 85610; 86850; 86900; 86901; 87040; 93005; 93041; 96361; 96374; 99285; J2405; J2470; Q9967